=== PATIENT | male | born 1940 | race Caucasian/White ===

== ENCOUNTER 2024-11-30 07:24 | Day surgery (SDC) | payer OTHER ==
[~2024-11-30] VITALS: Ht 177.8 cm; Wt 103.4 kg
[~2024-11-30 07:24] MED LIST: AMIO200T33 PO; APIX5TAB PO; DONE1TAB88 PO; ESCI1TAB36 PO; INSU1INJ3 SC; LOSA100T33 PO; METO25TA5 PO; SEMA2INJ3 SC; SIMV40TA18 PO; TRAM50TA2 PO; TRAZ-228 PO
[2024-11-30] MEDS: VERAPAMIL 2.5MG/ML INJ 2ML VIAL IV ONE (11:48)
[2024-11-30] MEDS: ANGIOMAX 250 MG VIAL IV ONE (11:48)
[2024-11-30] MEDS: HEPARIN SODIUM (PORCINE) 5000 UNITS/ML 1ML VIAL ONE (11:48)
[2024-11-30] MEDS: MIDAZOLAM HCL 2MG/2ML 2ml VIAL (1mg/ml) ONE (11:49)
[2024-11-30] MEDS: LIDOCAINE 2%HCL (LOCAL ANESTH.) INJ 20ML MDV ONE (11:49)
[2024-11-30] MEDS: fentaNYL CITRATE 100 MCG/2 ML VL ONE (11:49)
[2024-11-30] MEDS: NITROGLYCERIN 50MG/250ML 250 ML IV ONE (11:50)
[2024-11-30] MEDS: IODIXANOL 320MG/ML 100ML BTL IV ONE ×2 (11:55→12:40)
--- NOTE | 2024-11-30 12:38 | DVHOP2 ---
Operative Report - 2 Report Details Date: 11/30/24 Preop Diagnosis: CAD Postop Diagnosis: Normal coronaries. Normal LV function. Normal end-diastolic pressures. Surgeon: Pacheco Floyd MD Anesthesiologist: Conscious sedation. Anesthesia: Mac, Local Consent: The patient was informed of the risks and benefits of the procedure. These include but are not limited to complications of anesthesia, postoperative infection, incomplete relief of symptoms, recurrence of symptoms, damage to blood vessels, nerves and tendons, deep venous thrombosis, pulmonary embolism and possible need for repeat surgery in the future. Complications: No complications Estimated Blood Loss: 2 cc Findings: Normal coronaries. Normal LV function. Indications for Surgery: Chest pain. Abnormal stress test. Name of Procedure Performed Left heart catheterization bilateral cine coronary angiography. Left ventriculography. Procedure Details Procedure Details: Prior local anesthesia with a 2% lidocaine to the right wrist and full informed consent obtained patient was prepped and draped in the usual fashion followed by placement of a six [place] sheath into the radial artery through six [place] Say catheters were used to cannulate both right and left coronary ostia. A six [place] multipurpose catheter was used for ventriculography without complications. Hemodynamics: Aortic blood pressure was 110/70. End-diastolic pressure was eight. No gradient across the aortic valve on pullback. Coronary anatomy: RCA is a large vessel it is dominant. It is normal in its proximal mid and distal segments. PDA posterolateral branches are normal. Left main is large and normal. Left anterior descending is large and normal two diagonals free of significant disease. Circumflex is large with two marginals free of significant disease. Ventriculography in the LÓPEZ projection shows an EF of 60%. Impression: 1. Normal left ventricular end-diastolic pressure valves. 2. Normal left ventricular ejection fraction. 3. Normal coronary arteries. Recommendations: Medical therapy to continue. Risk factor modification to continue Condition Good Disposition Home Date of Service: November 30, 2024 Billing Provider: PACHECO FLOYD Sr., MD Cardiology Common Codes: 19740-ABXPZKC INP/OBS CARE (High) Cardiology Procedure Codes: 13844-KBYJ ADD CORONARY BRANCH, 92716-KJRN ADD COR ART/BRNCH/GRFT, 18879-DJJK HEART CATH W/INTRA INJ PACHECO FLOYD Sr., MD November 30, 2024 12:38
== END 2024-11-30 14:59 | disposition home or self-care (01) ==
LOC: CATH 07:24
PROVIDERS: ATTEND Internal Medicine
DX: R07.9 Chest pain, unspecified (principal); I25.10 Atherosclerotic heart disease of native coronary artery without angina pectoris; E78.2 Mixed hyperlipidemia; I12.9 Hypertensive chronic kidney disease with stage 1 through stage 4 chronic kidney disease, or unspecified chronic kidney disease; E11.22 Type 2 diabetes mellitus with diabetic chronic kidney disease; E11.29 Type 2 diabetes mellitus with other diabetic kidney complication; G47.33 Obstructive sleep apnea (adult) (pediatric); F33.2 Major depressive disorder, recurrent severe without psychotic features; N18.31 Chronic kidney disease, stage 3a; G89.29 Other chronic pain; Z86.73 Personal history of transient ischemic attack (TIA), and cerebral infarction without residual deficits; I48.0 Paroxysmal atrial fibrillation; Z95.0 Presence of cardiac pacemaker; Z79.899 Other long term (current) drug therapy; Z98.890 Other specified postprocedural states
CPT/HCPCS: 93458; C1894; J1644; J2250; J3010; Q9967; 99152